=== PATIENT | female | born 1985 | race Caucasian/White ===

== ENCOUNTER 2017-03-23 20:35 | Emergency (ER) | payer OTHER ==
[~2017-03-23] VITALS: Ht 157.5 cm; Wt 65.0 kg
[2017-03-24 00:36] VITALS: BP 123/76
== END 2017-03-24 01:08 | disposition home or self-care (01) ==
LOC: RME 20:35 → EME 20:35 → RME 03-24 01:08
DX: J02.0 Streptococcal pharyngitis (principal)
CPT/HCPCS: J1100; J1885; J2405; J7030